=== PATIENT | female | born 1995 | race Caucasian/White ===

== ENCOUNTER → 2019-09-23 14:25 | Outpatient (CLI) | payer OTHER, SELFPAY | PROVIDERS: PCP Family Medicine; Visit Provider Family Medicine | DX: R00.2 Palpitations (principal); R00.0 Tachycardia, unspecified | CPT/HCPCS: 93270 ==

== ENCOUNTER 2020-09-02 07:22 | Emergency (ER) | payer OTHER, SELFPAY ==
[2020-09-02 07:24] VITALS: BP 139/93; PULSE 88; RESP 18; TEMP 36.6; O2SAT 99; BMI 46.0
[2020-09-02 07:30] VITALS: BP 141/97; PULSE 92; RESP 18; O2SAT 100
[2020-09-02 08:00] VITALS: BP 142/98; PULSE 95; O2SAT 100
--- NOTE | 2020-09-02 08:09 | XR_ITS ---
PROCEDURE: XR CHEST PORTABLE CLINICAL HISTORY: soa Shortness of air COMPARISON: CR Chest from 10/14/2018 FINDINGS: Normal heart size. There is mild prominence of the pulmonary outflow tract not significantly changed. The lungs are clear without infiltrates, suspicious nodules, or pleural effusions. No acute bony abnormalities. IMPRESSION: No change with no acute finding Nonspecific mild prominence of the pulmonary outflow tract Dictated by: Mohinder Gaspar MD 09/02/2020 09:07 Mohinder Gaspar MD in [place] 09/02/2020 09:07
--- NOTE | 2020-09-02 08:21 | ECG_ITS ---
APPROVED REPORT Exam: Resting ECG HR:78 bpm ECG Measurements Heart Rate 78 AXES LA 146 P 36 QRSd 74 QRS 19 QT 350 T 28 QTc 399 Conclusion Normal sinus rhythm Normal ECG Electronically signed by : Mahad Melendez, 09/03/2020 10:40:01
[2020-09-02 08:30] VITALS: BP 125/75; PULSE 79; RESP 20; O2SAT 98
[2020-09-02 08:33] LABS: Basophils # 0.1 K/mm3 (0-0.2); Basophils % 1.1 % (0.1-2.0); Eosinophils # 0.2 K/mm3 (0.0-0.4); Eosinophils % 3.6 % (0.1-12.0); Hematocrit 42.8 % (37.0-47.0); Hemoglobin 13.2 g/dL (12.2-16.2); Lymphocytes # 2.5 K/mm3 (0.7-4.5); Lymphocytes % 39.4 % (10-50); Mean Corpuscular Hemoglobin 25.7 pg (27.0-31.2); Mean Corpuscular Volume 83.1 fl (81-99); Mean Platelet Volume 7.2 fl (7.4-10.4); Monocytes # 0.3 K/mm3 (0.1-1.0); Monocytes % 5.1 % (1.7-9.3); Neutrophils # 3.3 K/mm3 (1.8-7.8); Neutrophils % 50.9 % (37.0-80.0); Platelet Count 317 K/mm3 (142-424); Red Blood Count 5.15 M/mm3 (4.20-5.40); Red Cell Distribution Width 14.2 % (11.5-17.5); White Blood Count 6.4 K/mm3 (4.8-10.8)
[2020-09-02 08:34] LABS: Chloride 102 mmol/L (98-107)
[2020-09-02 08:35] LABS: Potassium 4.1 mmoL/L (3.5-5.1); Sodium 139 mmol/L (136-145)
[2020-09-02 08:38] LABS: Anion Gap 12.1 mEq/L (5-15); Blood Urea Nitrogen 13 mg/dl (7-17); Calcium 9.6 mg/dl (8.4-10.2); Carbon Dioxide 29 mmol/L (22.0-30.0); Creatinine Clearance Estimated 117 mL/min (50-200); Estimated Glomerular Filt Rate 120 ml/min (>60); GFR (African American) 145 ML/MIN (>60); Glucose 107 mg/dl (74-100)
[2020-09-02 08:42] LABS: HCG Qualitative, Serum Negative (Negative)
[2020-09-02 08:50] LABS: Troponin I < 0.01 ng/ml (0.00-0.034)
--- NOTE | 2020-09-02 08:53 | CT_ITS ---
PROCEDURE: CT ANGIO CHEST CLINCIAL INDICATION: pte Chest pain COMPARISON: No exams were available for comparison TECHNIQUE: IV Contrast: 70ML Isovue 370 Axial images obtained with sagittal and coronal reformats. All CT scans at the facility use one or more dose reduction, viz: automated exposure control, ma/kV adjustment per patient size (including targeted exams where dose is matched to indication, i.e. head), or iterative reconstruction technique. FINDINGS: Motion artifact somewhat obscures fine detail. No evidence of aortic aneurysm or dissection. No evidence of pulmonary embolus. There is prominence of the main pulmonary artery at 3.6 cm in diameter. The pulmonary artery/aortic ratio is greater than 1. There are mildly enlarged mediastinal and bilateral hilar lymph nodes. The largest node in the mediastinum is in AP window and measures 2.4 by 1.5 cm. Hilar nodes measure up to 2 x 1.4 cm on the left and 2.3 by 1.5 cm on the right. Minimal atelectatic or fibrotic changes are present in the left upper lobe posterior laterally. There is a noncalcified 7 mm nodule in the right upper lobe in the perihilar region. A 4 mm nodules present in the left lower lobe anteriorly. Minimal subpleural opacity noted in the left lower lobe. 4 mm nodule noted in the superior segment of the left lower lobe posteriorly. No lobar consolidation or effusions. Upper abdominal images have an unremarkable appearance. No acute bony findings. Mild degenerative changes are present in the thoracic spine. IMPRESSION: 1. No evidence of pulmonary embolus. 2. Prominent main pulmonary artery with pulmonary artery/aorta ratio greater than 1 which may be seen with pulmonary arterial hypertension. 3. Mediastinal and hilar adenopathy etiology indeterminate. The nodes could be reactive or neoplastic. 4. At least 3 noncalcified pulmonary nodules the largest in the right upper lobe at 7 mm. Consider six-month follow-up to confirm stability. Dictated by: Mohinder Gaspar MD 09/02/2020 10:02 Mohinder Gaspar MD in [place] 09/02/2020 10:02
[2020-09-02 09:00] VITALS: BP 141/105; PULSE 86; RESP 20; O2SAT 98
--- NOTE | 2020-09-02 09:25 | PC.NURSE ---
pt gone to CT
--- NOTE | 2020-09-02 09:57 | HMH.EDGENADL ---
ED Disposition Clinical Impression: Chest pain, Back pain Disposition: Home, Self-Care Condition on Discharge: Good Additional Instructions: Follow-up with Dr. Hartmann for echocardiogram regarding possible pulmonary hypertension. Also follow-up with Dr. Hartmann in 6 months for CAT scan for pulmonary nodule valuation. Return to emergency room for worsening chest pain back pain vomiting fever or any other concerns within 24 hours Referrals: Mahad Hartmann MD [Primary Care Provider] - - Critical Care Critical Care Time: No Attestation: On 09/02/20, the high probability of a clinically significant, sudden or life threatening deterioration of the following system(s) required my full and direct attention, intervention and personal management. The time I documented below is in addition to time spent performing reported procedures but includes the following listed in this critical care notation. Medical Decision Making - Medical Records Medical records reviewed: Yes: I reviewed the patient's medical records. - Mart Inquiry Pt receiving controlled substance: No Vital Signs: 09/02/20 07:24 09/02/20 07:30 09/02/20 08:00 Temperature 97.8 F Temperature Source Oral Pulse Rate 92 H 95 H Pulse Rate [Right] 88 Respiratory Rate 18 18 Blood Pressure 141/97 H 142/98 H Blood Pressure [Right Arm] 139/93 H Blood Pressure Mean 113 107 Blood Pressure Mean [Right Arm] 108 02 Sat by Pulse Oximetry 99 100 100 09/02/20 08:30 09/02/20 09:00 Temperature Temperature Source Pulse Rate 79 86 Pulse Rate [Right] Respiratory Rate 20 20 Blood Pressure 125/75 141/105 H Blood Pressure [Right Arm] Blood Pressure Mean 91 117 Blood Pressure Mean [Right Arm] 02 Sat by Pulse Oximetry 98 98 - Lab Data Lab Results 09/02/20 08:17: WBC 6.4, RBC 5.15, Hgb 13.2, Hct 42.8, MCV 83.1, MCH 25.7 L, MCHC 31.0 L, RDW 14.2, Plt Count 317, MPV 7.2 L, Neut % (Auto) 50.9, Lymph % (Auto) 39.4, [place] % (Auto) 5.1, Eos % (Auto) 3.6, Baso % (Auto) 1.1, Neut # (Auto) 3.3, Lymph # (Auto) 2.5, [place] # (Auto) 0.3, Eos # (Auto) 0.2, Baso # (Auto) 0.1 09/02/20 08:17: D-Dimer 1.10 H 09/02/20 08:17: Sodium 139, Potassium 4.1, Chloride 102, Carbon Dioxide 29, Anion Gap 12.1, BUN 13, Creatinine 0.60, Estimated Creat Clear 117, Estimated GFR 120, Est GFR ( Amer) 145, Glucose 107 H, Calcium 9.6, Troponin I < 0.01 09/02/20 08:17: Serum HCG, Qual Negative Result diagrams: 09/02/20 08:17 09/02/20 08:17 Orders (Tests/Meds): ED MEDICATIONS Discontinued Medications Generic Name Dose Route Start Last Admin Trade Name Yajaira PRN Reason Stop Dose Admin Iopamidol 70 ml 09/02/20 09:42 09/02/20 09:46 Iopamidol-370 (76%);100ml Bottle IV 09/02/20 09:43 70 ml ONCE ONE Administration Ketorolac Tromethamine 30 mg 09/02/20 08:00 09/02/20 08:01 Ketorolac 30mg/Ml Vial IM 09/02/20 08:01 30 mg ONCE ONE Administration Sodium Chloride 10 ml 09/02/20 09:42 09/02/20 09:46 Sodium Chloride 0.9% 10ml Syr (Rad Only) IV 09/02/20 09:43 10 ml ONCE ONE Administration Sodium Chloride 50 ml 09/02/20 09:42 09/02/20 09:46 0.9 % Sodium Chloride 50 Ml Vial IV 09/02/20 09:43 50 ml ONCE ONE Administration ORDERS Category Date Time Status Troponin I Q3H Lab 09/02/20 11:15 Ordered Troponin I Q3H Lab 09/02/20 14:15 Ordered Medical Decision Narrative: 25-year-old female presents with chest pain and back pain. She is in no acute distress nontoxic-appearing comfortable in the bed with normal vital signs. She is not hypoxic or have other risk factors for pulmonary embolism besides obesity and prior clotting, D-dimer was obtained that was elevated 1.1 CT angio chest was obtained. Atypical symptoms for myocardial infarction, troponin and EKG were negative, very low risk for this. Atypical presentation for dissection. No evidence of deep space infection of the back or any other concerns. Angio shows no evidence
[2020-09-02 10:45] VITALS: BP 135/71; PULSE 76; RESP 16; TEMP 36.8; O2SAT 98
== END 2020-09-02 10:44 | disposition home or self-care (01) ==
PROVIDERS: Emergency Provider Emergency Medicine; PCP Family Medicine
DX: R07.9 Chest pain, unspecified (principal); M54.2 Cervicalgia; Z87.891 Personal history of nicotine dependence; R73.9 Hyperglycemia, unspecified
CPT/HCPCS: 71045; 71275; 80048; 84484; 84703; 85025; 85378; 93005; 99282; Q9967

== ENCOUNTER → 2020-09-21 10:55 | Outpatient (CLI) | payer OTHER, SELFPAY ==
--- NOTE | 2020-09-21 11:01 | CA_ITS ---
APPROVED REPORT EXAM: Comprehensive 2D, Doppler, and color-flow Echocardiogram Triple Drum Operator: Bethany Fox RDCS Ht: 5 ft 4 in Wt: 270lbs BSA: 2.22 BP: 128/80 mmHg Indications: CP,PUL ARTERY ENLARGED 2D Dimensions LVOT 1.74 cm (M/F) 1.5-2.5 M-Mode Dimensions RVDd 1.88 cm (0.9-2.6) LA Diam 3.09 cm (1.9-4.0) LVDd 4.16 cm (3.5-5.7) Ao Diam 2.72 cm (2.0-3.7) LVDs 3.46 cm (3.5-5.7) IVSd 0.71 cm (0.6-1.1) PWd 0.76 cm (0.6-1.1) EF (Teich) 35.50% FS 16.80% EDV (Teich) 76.80 mL TAPSE 2.78 (<1.7) ESV (Teich) 49.50 mL LV Diastology E Decel Time 163.00 (160-240 msec) E/A Ratio 1.4 MED E' 11.60 (< 7 cm/sec) E'/MED E' Ratio 5.99 (>14) LAT E' 12.50 (<10 cm/sec) E/LAT E' Ratio 5.56 (>14) Mitral Valve MV E Max Madi. 69.00 (40-130 cm/s) MV A Velocity 51.00 (40-130 cm/s) E/A Ratio 1.37 MV Decel. Time 163.00 (160-240 ms) MV PHT 48.00 ms Left Ventricle Left atrium is normal size, left ventricle is normal size, there is no concentric left ventricular hypertrophy, visually estimated ejection fraction 55% with no regional wall motion abnormality, diastolic parameters are within normal range. Right Ventricle Right atrium and right ventricle are normal size and contractility. Aortic Valve Aortic valve is grossly normal, there is no aortic stenosis or aortic insufficiency. Mitral Valve Mitral valve is grossly normal, there is trace mitral regurgitation. Tricuspid Valve Tricuspid grossly normal, there is trace tricuspid regurgitation. Pulmonic Valve Pulmonic valve is poorly visualized. Great Vessels Aortic root is normal size. Pericardium No significant pericardial effusion noted. Conclusion 1. Normal left ventricular size, preserved left ventricular systolic function, visually estimated ejection fraction 55% with no regional wall motion abnormality, diastolic parameters are within normal range. 2. Trace mitral and tricuspid regurgitation. 3. No significant pericardial effusion noted. Electronically signed by : Nael Greer, 09/21/2020 21:33:40
== END ==
PROVIDERS: PCP Family Medicine; Visit Provider Family Medicine
DX: R07.9 Chest pain, unspecified (principal); I28.8 Other diseases of pulmonary vessels
CPT/HCPCS: 93306

== ENCOUNTER 2021-01-15 11:09 | Emergency (ER) | payer OTHER, SELFPAY ==
[2021-01-15 11:21] VITALS: PULSE 116; RESP 19; TEMP 36.6; O2SAT 99; BMI 47.2
[2021-01-15 11:25] VITALS: BP 131/79; PULSE 116; RESP 19; TEMP 36.6
[2021-01-15 11:33] LABS: UTC Strep Screen (Rapid) Positive (Negative)
--- NOTE | 2021-01-15 11:53 | HMH.EDUTC ---
[facility] [place] Clinical Impression: Strep throat Disposition: Home, Self-Care Condition on Discharge: Good Instructions: Strep Throat, DI for Strep Throat Additional Instructions: Drink plenty of fluids. Take tylenol or ibuprofen for pain or fever. Take the medications as directed. Follow up with your regular doctor. GO TO THE ER FOR ANY WORSENING SYMPTOMS Throw your tooth brush away and get a new one. Prescriptions: Amoxicillin/Potassium Clav [Augmentin 875-125 Tablet] 1 tab PO Q12H 10 Days #20 tab Transmission Status: Re[facility] by [id number] predniSONE [Deltasone 10mg tablet] 10 mg PO BID 3 Days #6 tab Transmission Status: Received by [facility] Ondansetron [Zofran 4mg ODT] 4 mg PO DAILYP PRN #12 tab PRN Reason: Nausea Transmission Status: Received by [facility] Referrals: Tana Rodriguez PA [Primary Care Provider] - Forms: Work/School Release Time of Disposition: 11:54 Medical Decision Making - Medical Records Medical records reviewed: No: I reviewed the patient's medical records. - Mart Inquiry Pt receiving controlled substance: No Vital Signs: 01/15/21 11:21 01/15/21 11:25 Temperature 97.9 F 97.9 F Temperature Source Temporal Artery Scan Temporal Artery Scan Pulse Rate 116 H Pulse Rate [Left] 116 H Respiratory Rate 19 19 Blood Pressure 131/79 02 Sat by Pulse Oximetry 99 - Lab Data Lab results reviewed: Yes: I reviewed the patient's lab results. Lab Results 01/15/21 11:25: Strep Scn Rapid Clinic Positive A [facility] [place] HPI - General Stated complaint: possible strep Time Seen by Provider: 01/15/21 11:53 Mode of Arrival: Ambulatory Source of Information: Patient Limitations: No Limitations Description of Symptoms (Recalled from Triage Doc. by RN): pt c/o a sore throat with white blisters. HEENT Symptoms (Recalled from RN notes): Yes (sore throat and blisters) Resp Symptoms (Recalled from RN notes): No Skin Symptoms (Recalled from RN notes): No MS Symptoms (Recalled from RN notes): No Functional Status (Recalled from RN notes): na - History of Present Illness Provider Complaint: She c/o sore throat for the past 2 days. She gets strep at times and she believes she has it now. - Related Data Previous Rx's Medication Instructions Recorded azithromycin 250 mg tablet 250 mg PO QDAY 5 Days #6 tab 09/23/20 Amoxicillin/Potassium Clav 1 tab PO Q12H 10 Days #20 tab 01/15/21 [Augmentin 875-125 Tablet] Ondansetron [Zofran 4mg ODT] 4 mg PO DAILYP PRN #12 tab 01/15/21 predniSONE [Deltasone 10mg tablet] 10 mg PO BID 3 Days #6 tab 01/15/21 Allergies Allergy/AdvReac Type Severity Reaction Status Date / Time No Known Allergies Allergy Verified 09/29/20 13:40 - Worker's Comp Is this a Worker's Comp case?: No [facility] History - Hepatitis A Screen Drug use history?: No High risk sexual behaviors?: No History of sexually transmitted infection?: No Currently employed?: No Childcare worker?: No Do you have indoor plumbing?: Yes Do you have electricity?: Yes Attestation statement:: This patient has been screened for Hepatitis A risk factors. I have reviewed the patient's past medical history: Yes Medical History: Denies:: Cancer, Diabetes Mellitus Type 1, Diabetes Mellitus Type 2, MRSA Laterality Cases: Right: Other Amputation: No Fractures: No - Social History Smoking Status: Former smoker Alcohol Intake: never Substance Use Type: denies use Occupational Status: employed Housing: house Household Members: family Family Hx:: Non-contributory ROS Obtained: Yes All systems reviewed & no additional complaints - Constitutional Constitutional: Reports chills, Reports fever(s), Reports poor appetite, Reports malaise - Eyes Eyes: Denies eye discharge - ENT Ears, Nose, Mouth, and Throat: Reports as per HPI - Cardiovascular Cardiovascular: Denies chest pain - Respiratory Respiratory: Denies c
== END 2021-01-15 12:01 | disposition home or self-care (01) ==
PROVIDERS: Emergency Provider Nurse Practitioner Family; PCP Physician Assistant
DX: J02.0 Streptococcal pharyngitis (principal)
CPT/HCPCS: 87880; 99202; G0463

== ENCOUNTER → 2021-05-03 20:10 | Outpatient (CLI) | payer OTHER, SELFPAY | PROVIDERS: Visit Provider Nurse Practitioner Family | DX: U07.1 COVID-19 (principal) | CPT/HCPCS: C9803; U0003; U0005 ==

== ENCOUNTER → 2022-06-09 13:44 | Outpatient (CLI) | payer OTHER, SELFPAY | PROVIDERS: PCP Nurse Practitioner Family; Visit Provider Nurse Practitioner Family | DX: J02.0 Streptococcal pharyngitis (principal); B95.0 Streptococcus, group A, as the cause of diseases classified elsewhere | CPT/HCPCS: 87070; 87077; 87186 ==

== ENCOUNTER 2022-09-24 18:34 | Emergency (ER) | payer OTHER, SELFPAY ==
[2022-09-24 18:35] VITALS: BP 135/81; PULSE 89; RESP 18; O2SAT 99; BMI 44.2
--- NOTE | 2022-09-24 18:41 | XR_ITS ---
PROCEDURE INFORMATION: Exam: XR Chest Exam date and time: 09/24/2022 6:44 PM Age: 27 years old Clinical indication: Pain; Chest pressure; Additional info: Cp TECHNIQUE: Imaging protocol: Radiologic exam of the chest. Views: 1 view. COMPARISON: CR XR CHEST PORTABLE 09/02/2020 8:24 AM FINDINGS: Lungs: Unremarkable. No consolidation. Pleural spaces: Unremarkable. No pleural effusion. No pneumothorax. Heart/Mediastinum: Unremarkable. No cardiomegaly. Bones/joints: Unremarkable. IMPRESSION: No acute findings.
--- NOTE | 2022-09-24 18:41 | ECG_ITS ---
APPROVED REPORT Exam: Resting ECG HR:86 bpm ECG Measurements Heart Rate 86 AXES FL 156 P 28 QRSd 78 QRS 11 QT 328 T 10 QTc 371 Conclusion SINUS RHYTHM POSSIBLE ANTERIOR MYOCARDIAL INFARCTION , PROBABLY OLD [30 ms Q WAVE IN V3/V4, OR R < 0.2 mV IN V4] BORDERLINE ECG UNCONFIRMED REPORT Electronically signed by : Mahad Melendez MD 09/25/2022 20:22:42
[2022-09-24 18:47] LABS: Basophils # 0.1 K/mm3 (0-0.2); Basophils % 0.6 % (0.1-2.0); Eosinophils # 0.3 K/mm3 (0.0-0.4); Eosinophils % 1.9 % (0.1-12.0); Hematocrit 38.6 % (37.0-47.0); Hemoglobin 12.5 g/dL (12.2-16.2); Lymphocytes # 4.5 K/mm3 (0.7-4.5); Lymphocytes % 34.5 % (10-50); Mean Corpuscular HGB Conc 32.4 g/dL (31.8-35.4); Mean Corpuscular Hemoglobin 25.7 pg (27.0-31.2); Mean Corpuscular Volume 79.2 fl (81-99); Mean Platelet Volume 8.1 fl (7.4-10.4); Monocytes # 0.4 K/mm3 (0.1-1.0); Monocytes % 3.2 % (1.7-9.3); Neutrophils # 7.8 K/mm3 (1.8-7.8); Neutrophils % 59.8 % (37.0-80.0); Platelet Count 322 K/mm3 (142-424); Red Blood Count 4.87 M/mm3 (4.20-5.40); Red Cell Distribution Width 15.3 % (11.5-17.5)
--- NOTE | 2022-09-24 18:47 | HMH.EDGENADL ---
Discharge Plan Disposition Patient Disposition: Home, Self-Care Condition: Good Chief Complaint: Chest Pain Prescriptions Prescriptions: No Action oxybutynin chloride 5 mg tablet extended release 24hr 5 mg PO DAILY Qty: 30 2RF Tubersol 5 tub. unit /0.1 mL solution 0.1 ml INTRADERMA ONCE Qty: 0.1 0RF Referrals Follow up/Referrals: Provider,Referral, [Referring] - See instructions Clinical Impressions Clinical Impression: Palpitations Discharge ED Provider: Kane Tsai General Adult HPI General Chief complaint: Chest Pain Stated complaint: chest tightness Time Seen by Provider: 09/24/22 18:46 Mode of Arrival: Ambulatory Source of Information: Patient Limitations: No Limitations Description of Symptoms (Recalled from ER Triage Doc. by RN): Patient reports she was having heart palpitations last night and has continued into today. Pt reports it feels like her heart is out of rythmn with some tightness at times. History of Present Illness HPI narrative: 27yo F presents to the ER secondary to heart palpitations. Reports they were much worse last night but has had intermittent symptoms all day throughout today. Has a history of palpitations and arrhythmia for which she used to be on propranolol. Ran out of that prescription around December and has not got it refilled. No chest pain. Related Data Previous Rx's Medication Instructions Recorded oxybutynin chloride 5 mg 5 mg PO DAILY #30 tabs 09/07/22 tablet,extended release 24 hr Allergies Allergy/AdvReac Type Severity Reaction Status Date / Time No Known Allergies Allergy Verified 09/07/22 10:03 [facility] Disclaimer: The information contained in this section may have been updated after the patient was seen, as this information can be updated by other users. Medical History Back pain Chest pain Family history of malignant neoplasm of endometrium Irregular periods OAB (overactive bladder) Palpitations Right foot injury Severe obesity (BMI >= 40) Urge incontinence of urine Surgical History H/O dilation and curettage [place] teeth removed Family History Other Alcoholism Asthma FHx: mental illness Hypertension Substance abuse Social History Smoking Status: Never smoker alcohol intake: never substance use type: denies use current occupational status: employed Travel in the last 8 weeks: None household members: family housing: house ROS Obtained: Yes Systems reviewed as appropriate & no additional complaints except as documented Physical Exam General General appearance: alert, in no apparent distress and obese Head Head exam: atraumatic Eye Eye exam: Present PERRL Neck Neck exam: Present trachea midline Chest Chest inspection: Present normal inspection Respiratory Respiratory exam: Present normal lung sounds bilaterally; Absent respiratory distress Cardiovascular Cardiovascular exam: Present regular rate, normal rhythm and normal heart sounds Abdominal Exam Abdominal exam: Present soft Extremities Exam Extremities exam: Absent tenderness or edema Neurological Exam Neurological exam: Present alert, oriented X3 and CN II-XII intact Skin Skin exam: Present warm and dry Medical Decision Making Medical Records Medical records reviewed: Yes I reviewed the patient's medical records. Mart Inquiry Pt receiving controlled substance: No Mart was queried for this patient: No Vital Signs: 09/24/22 18:35 Pulse Rate [Right Brachial] 89 Respiratory Rate 18 Blood Pressure [Right Arm] 135/81 Blood Pressure Mean [Right Arm] 99 Blood Pressure Source [Right Arm] Automatic Cuff Blood Pressure Position [Right Arm] Sitting 02 Sat by Pulse Oximetry 99 Oxygen Delivery Method Room Air Lab Data L
[2022-09-24 18:48] LABS: Chloride 102 mmol/L (98-107); Potassium 3.8 mmoL/L (3.5-5.1); Sodium 138 mmol/L (136-145)
[2022-09-24 18:51] LABS: Anion Gap 8.8 mEq/L (5-15); Blood Urea Nitrogen 9 mg/dl (7-17); Calcium 9.3 mg/dl (8.4-10.2); Carbon Dioxide 31 mmol/L (22.0-30.0); Creatinine Clearance Estimated 98 mL/min (50-200); Estimated Glomerular Filt Rate 99 ml/min (>60); GFR (African American) 120 ML/MIN (>60); Glucose 94 mg/dl (74-100)
[2022-09-24 19:27] LABS: Troponin I < 0.01 ng/ml (0.00-0.034)
[2022-09-24 20:16] VITALS: BP 129/75; PULSE 85; PULSE 87; RESP 20; TEMP 36.8; O2SAT 99
== END 2022-09-24 20:31 | disposition home or self-care (01) ==
PROVIDERS: Emergency Provider Family Medicine; PCP Physician Assistant
DX: R07.9 Chest pain, unspecified (principal); R00.2 Palpitations
CPT/HCPCS: 71045; 80048; 84484; 85025; 93005; 99285

== ENCOUNTER 2023-06-11 21:41 | Outpatient (CLI) | payer OTHER, SELFPAY ==
[2023-06-11 18:21] LABS: Adenovirus,PCR Not Detected (NotDetected); Coronavirus 229E Not Detected (NotDetected); Coronavirus NL63 Not Detected (NotDetected); Coronavirus OC43 Not Detected (NotDetected); Coronovirus HKU1,PCR Not Detected (NotDetected); Human Metapneumovirus Not Detected (NotDetected); Influenza A, PCR Not Detected (NotDetected); Influenza AH1, 2009 Not Detected (NotDetected); Influenza AH1, PCR Not Detected (NotDetected); Influenza AH3,PCR Not Detected (NotDetected); Influenza B, PCR Not Detected (NotDetected); Parainfluenza 1, PCR Not Detected (NotDetected); Parainfluenza 2, PCR Not Detected (NotDetected); Parainfluenza 3, PCR Not Detected (NotDetected); Parainfluenza 4, PCR Not Detected (NotDetected); Respiratory Syncytial Virus Not Detected (NotDetected); Rhinovirus/Enterovirus Not Detected (NotDetected)
[2023-06-11 20:01] LABS: Coronavirus 19, PCR Detected (NotDetected)
== END 2023-06-11 23:59 ==
LOC: LAB.DROPOF 21:42
PROVIDERS: PCP Student in an Organized Health Care Education/Training Program; Visit Provider Student in an Organized Health Care Education/Training Program
DX: R11.0 Nausea (principal); R50.9 Fever, unspecified; R09.89 Other specified symptoms and signs involving the circulatory and respiratory systems; R05.9 Cough, unspecified; U07.1 COVID-19
CPT/HCPCS: 87070; 87632; 87635

== ENCOUNTER 2024-02-22 09:16 | Outpatient (CLI) | payer OTHER, SELFPAY ==
--- NOTE | 2024-02-22 09:16 | US_ITS ---
PROCEDURE INFORMATION: Exam: US Abdomen, Limited; Right Upper Quadrant Exam date and time: 02/22/2024 9:56 AM Age: 29 years old Clinical indication: Abdominal pain; Epigastric; Additional info: Epigastric abd discomfort TECHNIQUE: Imaging protocol: Real time ultrasound of the abdomen with image documentation. Limited exam focused on the right upper quadrant. COMPARISON: CT ANGIO CHEST 09/02/2020 9:25 AM FINDINGS: Liver: Possible mild fatty infiltration. No definite mass. No intrahepatic ductal dilatation. Gallbladder: Markedly contracted versus surgical absence. Shadowing echogenic focus within gallbladder fossa may represent calculus or clip. Biliary ducts: No dilatation. No stones. Pancreas: Unremarkable as visualized. Right kidney: Normal echogenicity. No hydronephrosis. IMPRESSION: Contracted gallbladder with stone versus cholecystectomy. Correlate with surgical history.
== END 2024-02-22 23:59 | disposition home or self-care (01) ==
LOC: RAD 09:16
PROVIDERS: PCP Student in an Organized Health Care Education/Training Program; Visit Provider Student in an Organized Health Care Education/Training Program
DX: R10.13 Epigastric pain (principal)
CPT/HCPCS: 76700

== ENCOUNTER 2024-03-14 10:09 | Outpatient (CLI) | payer OTHER, SELFPAY ==
--- NOTE | 2024-03-14 10:09 | NM_ITS ---
FINAL REPORT TECHNIQUE: The patient was injected with 4 mCi of technetium 99m Choletec. No CCK was given as the patient has known gallstones. Images of the abdomen were obtained for one hour. CLINICAL HISTORY: abnormal RUQ US, probable gallstones 10:30AM 5.18 MCI CHOLETEC NO CCK GIVEN DUE TO PATIENT HAVING GALLSTONES COMPARISON: None FINDINGS: Hepatic uptake is normal. There is bowel and bile ducts seen at 10 minutes. The gallbladder is seen at 60 minutes. IMPRESSION: Normal hepatobiliary scan. CCK was not administered as the patient has known gallstones. Reviewed, Interpreted and Dictated by Prieto Lawrence III, MD Transcribed by Brynn Hutson Authenticated and [facility]
[2024-03-14] MEDS: ISOTOPE CHOLETECH;1 DOSE (UP TO 15 MCI) IV (11:52)
[2024-03-14] MEDS: SODIUM CHLORIDE 0.9% 10ML SYR (RAD ONLY) 10 ML IV (11:52)
== END 2024-03-14 23:59 | disposition home or self-care (01) ==
LOC: RAD 10:09
PROVIDERS: PCP Student in an Organized Health Care Education/Training Program; Visit Provider Student in an Organized Health Care Education/Training Program
DX: R93.5 Abnormal findings on diagnostic imaging of other abdominal regions, including retroperitoneum (principal); K80.20 Calculus of gallbladder without cholecystitis without obstruction
CPT/HCPCS: 78226; A9537

== ENCOUNTER 2024-03-31 16:05 | Outpatient (CLI) | payer OTHER, SELFPAY ==
[2024-04-01 14:12] LABS: H. pylori Breath Test Negative (Negative)
== END 2024-03-31 23:59 | disposition home or self-care (01) ==
LOC: LAB 16:06
PROVIDERS: PCP Student in an Organized Health Care Education/Training Program; Visit Provider Student in an Organized Health Care Education/Training Program
DX: R10.9 Unspecified abdominal pain (principal)
CPT/HCPCS: 83013

== ENCOUNTER 2024-08-12 14:09 | Outpatient (CLI) | payer OTHER, SELFPAY ==
[2024-08-12 16:01] LABS: Basophils % 0.5 % (0.1-2.0); Eosinophils # 0.3 K/mm3 (0.0-0.4); Eosinophils % 3.2 % (0.1-12.0); Hematocrit 39.4 % (37.0-47.0); Hemoglobin 11.8 g/dL (12.2-16.2); Lymphocytes % 35.7 % (10-50); Mean Corpuscular HGB Conc 29.9 g/dL (31.8-35.4); Mean Corpuscular Volume 80.2 fl (81-99); Mean Platelet Volume 9.9 fl (7.4-10.4); Monocytes # 0.4 K/mm3 (0.1-1.0); Monocytes % 4.8 % (1.7-9.3); Neutrophils # 4.7 K/mm3 (1.8-7.8); Neutrophils % 55.6 % (37.0-80.0); Platelet Count 322 K/mm3 (142-424); Red Blood Count 4.91 M/mm3 (4.20-5.40); Red Cell Distribution Width 15.5 % (11.5-17.5); White Blood Count 8.4 K/mm3 (4.8-10.8)
[2024-08-12 16:19] LABS: Alanine Aminotransferase 20 U/L (12-78); Albumin/Globulin Ratio 1.3 (1.1-1.8); Alkaline Phosphatase 112 U/L (38-126); Amylase 44 U/L (30-110); Anion Gap 12.7 mEq/L (5-15); Aspartate Amino Transferase 33 U/L (14-36); Bilirubin,Total 0.5 mg/dl (0.2-1.3); Blood Urea Nitrogen 8 mg/dl (7-17); Calcium 9.2 mg/dl (8.4-10.2); Carbon Dioxide 27 mmol/L (22.0-30.0); Chloride 103 mmol/L (98-107); Estimated Glomerular Filt Rate 98 ml/min (>60); GFR (African American) 118 ML/MIN (>60); Globulin 3.1 g/dL (1.3-3.2); Glucose 90 mg/dl (74-100); Lipase 113 U/L (23-300); Potassium 4.7 mmoL/L (3.5-5.1); Sodium 138 mmol/L (136-145); Total Protein,Serum 7.1 g/dl (6.3-8.2)
== END 2024-08-12 23:59 | disposition home or self-care (01) ==
LOC: LAB.DROPOF 08-13 07:53
PROVIDERS: PCP Nurse Practitioner Family; Visit Provider Nurse Practitioner Family
DX: R93.2 Abnormal findings on diagnostic imaging of liver and biliary tract (principal)
CPT/HCPCS: 80053; 82150; 83690; 85025

== ENCOUNTER 2024-09-02 09:39 | Outpatient (CLI) | payer OTHER, SELFPAY ==
[2024-09-02] MEDS: IOPAMIDOL-370 (76%);100ML BOTTLE 75 ML IV (09:55)
[2024-09-02] MEDS: SODIUM CHLORIDE 0.9% 10ML SYR (RAD ONLY) 10 ML IV (09:55)
--- NOTE | 2024-09-02 10:00 | CT_ITS ---
FINAL REPORT TECHNIQUE: Pre-and postcontrast axial CT images of the abdomen and pelvis were obtained. Coronal reformatted images were also obtained and reviewed.This study was performed with techniques to keep radiation doses as low as reasonably achievable (ALARA). Individualized dose reduction techniques using automated exposure control or adjustment of mA and/or kV according to the patient''''s size were employed. CLINICAL HISTORY: abd wall hernia FINDINGS: CT OF THE ABDOMEN AND PELVIS WITH AND WITHOUT CONTRAST Abdomen: The lung bases are clear. The heart is normal in size. The liver parenchyma is homogeneous. There is moderate sludge in the gallbladder. The spleen measures in the upper limits of normal in size. The pancreas, adrenals, and kidneys are unremarkable. There is a large midline anterior abdominal wall hernia. Defect measures 6 cm in transverse dimension. There is herniation of transverse colon. There is no evidence of obstruction. There is no free fluid or adenopathy. Pelvis: The appendix is not identified. The uterus is anteverted. Urinary bladder is incompletely distended. There is a small amount of free fluid. There is no adenopathy. IMPRESSION: Large midline anterior abdominal wall hernia containing colon. No evidence of obstruction. Sludge or stones in the gallbladder. Splenomegaly. Small amount of pelvic free fluid, likely physiologic. Reviewed, Interpreted and Dictated by Davi Quezada MD Transcribed by Brigida Núñez Authenticated and . [facility]
== END 2024-09-02 23:59 | disposition home or self-care (01) ==
LOC: RAD 09:39
PROVIDERS: PCP Nurse Practitioner Family; Visit Provider Nurse Practitioner Family
DX: R93.2 Abnormal findings on diagnostic imaging of liver and biliary tract (principal); K43.9 Ventral hernia without obstruction or gangrene; R10.9 Unspecified abdominal pain
CPT/HCPCS: 74178; Q9967

== ENCOUNTER 2024-09-23 11:34 | Outpatient (CLI) | payer OTHER, SELFPAY ==
--- NOTE | 2024-09-23 11:45 | CA_ITS ---
FINAL REPORT TECHNIQUE: Graded compression, spectral analysis and ultrasound images of the venous system of the upper extremity were obtained. CLINICAL HISTORY: left arm tingling pain FINDINGS: The jugular vein, subclavian vein, axillary vein, brachial vein, cephalic vein and basilic venous system are fully compressible and demonstrate no evidence of thrombosis. IMPRESSION: No evidence of thrombosis of the venous system of the left upper extremity. Reviewed, Interpreted and Dictated by Lubna Mcclelland MD Transcribed by Brigida Núñez Authenticated and [facility]
== END 2024-09-23 23:59 | disposition home or self-care (01) ==
LOC: RT 11:35
PROVIDERS: PCP Nurse Practitioner Family; Visit Provider Nurse Practitioner Family
DX: M79.622 Pain in left upper arm (principal); M79.89 Other specified soft tissue disorders; R20.2 Paresthesia of skin
CPT/HCPCS: 93971

== ENCOUNTER → 2025-01-25 09:17 | Outpatient (CLI) | payer OTHER, SELFPAY ==
--- OUTSIDE RECORDS SUMMARY | 2025-02-10 09:20 | XMS_ITS | Clinical Summary ---
[facility] Address [address] [place] [address] Care Team Providers Care Crew Attendant Name Role Phone Tana Garcia Primary Care Provider [phone] Allergies No known active allergies Medications * This document contains information received from the source organization and may not represent a complete record from that organization. vitamin D (ERGOCALCIFEROL) 1.25 MG (28653 UT) capsule capsuleIndications :Vitamin D insufficiency Take 1 capsule by mouth 1 (One) Time Per Week. 5 capsule 5 3 Active Iron, Ferrous Sulfate, 325 (65 Fe) MG tabletIndications: Iron deficiency Take 1 tablet by mouth Daily. 30 tablet 2 3 Active propranolol (INDERAL) 10 MG tabletIndications: Heart palpitations Take 1 tablet by mouth 2 (Two) Times a Day. 60 tablet 5 4 Active Active Problems Problem Noted Date Diagnosed Date Morbidly obese 05/06/2019 Immunizations Immunization Administration Dates Next Due DTaP, Unspecified 03/24/1997 Hepatitis A 04/22/2018 MMR 09/04/1997 OPV 03/24/1997 Td (TDVAX) 12/08/2003 Family History Medical History Relation Name Comments Hypertension Father Asthma Mother COPD Mother Obesity Mother Sleep apnea Mother Relation Name Status Comments Father Mother Alive has alot of med ical issues going on Social History Tobacco Use Types Packs/Day Years Used Date Smoking Tobacco: Former Cigarettes 0.3 4 2 011 - 2015 Smokeless Tobacco: Never Tobacco Cessation:Counseling Given: Not Answered Alcohol Use Standard Drinks/Week Comments Yes 0 (1 standard drink = 0.6 oz pur e alcohol) social AUDIT-C Answer Date Recorded Frequency of Alcohol Consumption Never 05/06/2019 Average Number of Drinks Not on file 019 Frequency of Binge Drinking Not on file 04/08 PHQ-2 Answer Date Recorded Retired PHQ-9: Brief Depression Severity Measure Score 0 09/25/2022 Abuse Screen Answer Date Recorded Unsafe at Home or Work/School Not on file Feels Threatened by Someone? Not on file 04/2023 Does Anyone Keep You from Co ntacting Others or Doint Things Outside the Home? Not on file 02/15/2023 Physical Sign of Abuse Present Not on file 1 Housing Stability Answer Date Recorded Current Living Arrangements Not on file 02/04 Potentially Unsafe Housing Conditions Not on estefania e 02/15/2023 Family and Community Support Answer Raji e Recorded Help with Day-to-Day Activities Not on file 02/15/2023 Lonely or Isolated Not on file 02/15/2023 Employment Answer Date Recorded Do you want help finding or keeping work or a deepak b? Not on file 02/15/2023 Disabilities Answer Date Recorded Concentrating, Remembering, or Making Decisions Difficulty Not on file 02/15/2023 Doing Errands Independently Difficulty Not on fi le 02/15/2023 Education Answer Date Recorded Help with school or training? Not on file Preferred Language Not on file 02/15/2023 PHQ-2 Answer Date Recorded Retired PHQ-9: Brief Depression Severity Measure Score 0 09/25/2022 Comments No Sex and Gender Information Value Date Recorded Sex Assigned at Not on file Legal Sex Female 11:42 AM EST Gender Identity Not on file Sexual Orientation Not on file Last Filed Vital Signs Vital Sign Reading Time Taken Comments Blood Pressure 114/72 12/21/2022 2:30 PM EDT Pulse 94 12/21/2022 2:30 PM EDT Temperature 36.8 C (98.2 F) 12/21/2022 2:30 PM EDT Respiratory Rate 18 12/21/2022 2:30 PM EDT Oxygen Saturation 97% 12/21/2022 2:30 PM EDT Inhaled Oxygen Concentration - - Weight 142 kg (313 lb) 12/21/2022 2:30 PM EDT Height 162.6 cm (5' 4 ) 12/21/2022 2:30 PM EDT Body Mass Index 53.73 12/21/2022 2:30 PM EDT Plan of Treatment Health Maintenance Due Date Last Done Comments Annual Gynecologic Pelvic an d Breast Exam 1993 TDAP/TD VACCINES (2 - Tdap) 12/07/2013 12/08/2003 ANNUAL PHYSICAL 05/06/2019 HEPATITIS C SCREENING 05/06/2019 INFLUENZA VACCINE 12/05/2024 Pneumococcal Vaccine 0-49 Aged Out No longer eligible based on patient's age to complete this topic Insurance Care Teams Crew Attendant Relationship Specialty Start Date End Date Tana Garcia PA [address] [place] [address] PCP - General Physician Tech Intern 05/06/19
--- OUTSIDE RECORDS SUMMARY | 2025-02-10 09:20 | XMS_ITS | Clinical Summary ---
Author Organization Healthcare Address [address] [place] [address] Care Team Providers Care Director Clinical Applications Name Role Phone Ion Varshachuy Luna APRN Primary Care Provider [phone] Allergies No known active allergies Medications propranolol (Inderal) 10 MG tablet Take 1 tablet (10 mg) by mouth twice a day. 09/25/2022 Active MV-Min-Fe Fum-FA-DHA ( 1 PO) Take by mouth. Active aspirin 81 MG EC tablet Take 1 tablet (81 mg) by mouth 1 (one) time each day. Active Active Problems Problem Noted Date Diagnosed Date Class 3 severe obesity due t o excess calories without serious comorbidity with body mass index (BMI) of 50.0 to 59.9 in adult 11/05/2024 Ventral hernia without obstruction or gangrene 0 10/27/2024 Personal history of nutritional deficiency 10/27 33 weeks gestation of 11/06/2023 Breech presentation 11/06/2023 Resolved Problems Problem Noted Date Diagnosed Date Resolved Date COVID-19 affecting in third trimester 11/06/2023 01/25/2025 Immunizations Immunization Administration Dates Next Due Tdap 10/19/2023 Family History Medical History Relation Name Comments Alcohol abuse Father Yang Hypertension Father Yang Alcohol abuse Mother Yahaira Anxiety disorder Mother Yahaira Mental illness Mother Yahaira Obesity Mother Yahaira Relation Name Status Comments Father Yang Mother Yahaira Social History Tobacco Use Types Packs/Day Years Used Date Smoking Tobacco: Never Smokeless Tobacco: Never Tobacco Cessation:Counseling Given: Not Answered Alcohol Use Standard Drinks/Week Comments Yes 0 (1 standard drink = 0.6 oz pur e alcohol) PHQ-2 Answer Date Recorded Patient Health Questionnaire-2 Score 0 10/26/2023 Heidelberg Depression Scale Answer Date Recorded Heidelberg Depression Scale Total 0 01/09/2024 The thought of harming myself has occurred to me . Never 01/09/2024 Comments Unknown Sex and Gender Information Value Date Recorded Sex Assigned at Not on file Legal Sex Female 5:59 PM EDT Gender Identity Not on file Sexual Orientation Not on file Last Filed Vital Signs Vital Sign Reading Time Taken Comments Blood Pressure 119/84 10/27/2024 12:32 PM EDT Pulse 80 10/27/2024 12:32 PM EDT Temperature 36.4 C (97.5 F) 10/27/2024 12:32 PM EDT Respiratory Rate 16 10/27/2024 12:32 PM EDT Oxygen Saturation 97% 10/27/2024 12:32 PM EDT Inhaled Oxygen Concentration - - Weight 149 kg (328 lb) 10/27/2024 12:32 PM EDT Height 162.6 cm (5' 4 ) 10/27/2024 12:32 PM EDT Body Mass Index 56.3 10/27/2024 12:32 PM EDT Plan of Treatment Health Maintenance Due Date Last Done Comments [facility]-Infant/Child/Adol SDOH Screenings 1993 [facility]-IPV Vaccines (2 of 3 - 4-dose series) 04/21/1997 03/24/1997 [facility]-Varicella Vaccines (1 of 2 - 13+ 2-dose series) 2006 [facility]- SDOH Screenings 2011 [facility]-Adult SDOH Screenings 2011 [facility]-Hepatitis B Vaccines (1 of 3 - 19+ 3-dose series) 01/20/2012 [facility]-Pap Smear 2014 HPV Vaccines (1 - 3-dose SCDM series) 01/20/2020 [facility]-Cervical Cancer Screening 2023 [facility]-HPV/Cotest 2023 [facility]-CDMSN-50 Vaccine ( - 2023- season) 2025 [facility]-Influenza Vaccine (#1) 2025 [facility]-Depression Screening 01/08/2025 01/09/2024, 10/06 [facility]-DTaP,Tdap,and Td Vaccines (4 - Td or Tdap) 10/18/2033 10/19/2023, 12/08/2003, 03/24/1997 [facility]-Zoster Vaccines (1 of 2) 2043 [facility]-Hepatitis A Vaccines Aged Out 04/22/2018 No longer eligible based on patient's age to complete this topic [facility]-HIV Screening Completed 06/08/2023, , 07/30/2014 [facility]-Hepatitis C Screening Completed 2023, 05/16/2016, 07/30/2014 [facility]-Obesity Intervention Completed 025, 01/09/2024, 11/13/2023, Additional history exists [facility]-HIB Vaccines Aged Out No longer e ligible based on patient's age to complete this topic [facility]-Pneumococcal Vaccine: Pediatrics (0 to 5 Years) and At-Risk Patients (6 to 49 Years) Aged Out No longer eligible based on patient's age to complete this topic [facility]-Rotavirus Vaccines Aged Out No lo nger eligible based on patient's age to complete this topic Procedures Procedure Name Priority Date/Time Associated Diagnosis Comments HEPATITIS C ANTIBODY W/REFLEX TO HCV QUANT PCR Routine 06/08/2023 3:05 PM EST Unsure of LMP (last menstrual period) as reason for ultrasound scan HIV 1/2 ANTIBODY/ANTIGEN SCREEN WITH REFLEX TO HIV I/II DIFFERENTIATION Routine 06/08/2023 3:05 PM EST Unsure of LMP (last menstrual period) as reason for ultrasound scan from Last 3 Months or Most Recently Relevant to Health Maintenance Results * HIV 1 & 2 Antibody/Antigen Screen (06/08/2023 3:05 PM EST) HIV 1 & 2 Antibody/Antigen Screen Non Reactive Non Reactive 06/08/2023 7:30 PM EST [facility] Comment:Screening for HIV 1 & 2 antibodies, and P24 antigen is NONREACTIVE. No confirmatory testing is required. Blood Venous blood specimen / Unknown Venipuncture / Unknown 06/08/2023 3:05 PM EST 06/08/2023 6:30 PM EST us Shree Feliz MD LAB BLOOD ORDERABLES Final Resu lt Performing Organization Address City/[facility]/ZIP Co de Phone Number [facility] [address] [place] [address] * Hepatitis C Antibody (06/08/2023 3:05 PM EST) Hepatitis C Antibody Negative Negative 06/08/2023 7:01 PM EST [facility] Blood Venous blood specimen / Unknown Venipuncture / Unknown 06/08/2023 3:05 PM EST 06/08/2023 6:30 PM EST us Shree Feliz MD LAB BLOOD ORDERABLES Final Resu lt Performing Organization Address City/[facility] Co de Phone Number [facility] [address] [place] [address] from Last 3 Months or Most Recently Relevant to Health Maintenance Insurance [employer] Care Teams Director Clinical Applications Relationship Specialty Start Date End Date Varsha Lemon APRN [address] [place] [address] PCP - General 09/27/24
--- OUTSIDE RECORDS SUMMARY | 2025-02-10 09:20 | XMS_ITS | Encounter Summary ---
Author Organization Healthcare Address [address] [place] [address] Care Team Providers Care Jockey Agent Name Role Phone Yossi Radford MD Primary Care Provider [phone] Varsha Lemon APRN Primary Care Provider [phone] Encounter Details Date Type Department Care Team (Late st Contact Info) Description 09/02/2024 Orders Only External Location [address] [place] [address] Provider, External Social History Tobacco Use Types Packs/Day Years Used Date Smoking Tobacco: Never Smokeless Tobacco: Never Alcohol Use Standard Drinks/Week Comments Yes 0 (1 standard drink = 0.6 oz pur e alcohol) PHQ-2 Answer Date Recorded Patient Health Questionnaire-2 Score 0 10/26/2023 Tamiment Depression Scale Answer Date Recorded Tamiment Depression Scale Total 0 01/09/2024 The thought of harming myself has occurred to me . Never 01/09/2024 Comments No Sex and Gender Information Value Date Recorded Sex Assigned at Not on file Legal Sex Female 5:59 PM EDT Gender Identity Not on file Sexual Orientation Not on file documented as of this encounter Plan of Treatment Not on file documented as of this encounter Procedures Procedure Name Priority Date/Time Associated Diagnosis Comments CT MSK OUTSIDE IMAGES 09/02/2024 9:51 AM EDT documented in this encounter Results * CT MSK OUTSIDE IMAGES (09/02/2024 9:51 AM EDT) Anatomical Region Laterality Modality Computed Tomogra phy 09/02/2024 9:51 AM EDT us External Provider IMG CT PROCEDURES Final Result documented in this encounter Visit Diagnoses Not on filedocumented in this encounter Additional Health Concerns Assessment Noted Time A fall risk assessment has been complete d for the patient 01/09/2024 11:00 AM EDT A Body Mass Index follow-up plan has been documented for the patient 01/09/2024 11:21 AM EDT documented as of this encounter Care Teams Jockey Agent Relationship Specialty Start Date End Date Yossi Radford MD [address] [place] [address] [address] [place] [address] PCP - General 09/17/20 09/26/24 Varsha Lemon APRN [address] [place] [id number] PCP - General 09/27/24 documented as of this encounter
== END ==
LOC: SL 02-10 09:18
PROVIDERS: PCP Nurse Practitioner Family; Visit Provider Nurse Practitioner Family
DX: R06.83 Snoring (principal); E66.01 Morbid (severe) obesity due to excess calories